=== PATIENT | male | born 2000 | race Caucasian/White ===

== ENCOUNTER 2022-04-23 20:31 | Emergency (ER) | payer OTHER, SELFPAY ==
[2022-04-23 21:12] VITALS: BP 145/78; PULSE 85; RESP 18; TEMP 36.4; O2SAT 99; BMI 22.3
--- NOTE | 2022-04-23 21:26 | CRLHL7_ITS ---
For Patients: As a result of the Century Cures Act, medical imaging exams and procedure reports are released immediately into your electronic medical record. You may view this report before your referring provider. If you have questions, please contact your health care provider. INDICATION: Facial swelling after root canal. COMPARISON: None available TECHNIQUE: CT examination of the facial bones is performed during the uneventful intravenous administration of 95 cc of Isovue 370. Using spiral technique. 1 mm thick axial, coronal and sagittal sections were obtained from the data. Please note that all CT scans at this facility use dose modulation, iterative reconstruction, and/or weight-based dosing when appropriate to reduce radiation dose to as low as reasonably achievable. FINDINGS: There is moderate facial swelling on the right extending from the mandibular region through the maxillary region and lower eyelid. The findings are that of moderate right cellulitis. On the right, there is a subperiosteal abscess along the anterior right maxilla measuring 1.5 by 0.6 centimeters, best seen on axial image 83 series 3. This is not associated with a periapical abscess. There is mild soft tissue swelling on the left in a similar distribution as on the right, with mild soft tissue stranding. The findings are that of mild left cellulitis. There is no sign of facial fracture on today`s study. The orbits, zygomatic arches, nasal bones, maxillae, and mandible are normal in appearance. There is moderate mucosal thickening in the inferior right maxillary sinus from moderate chronic sinusitis. There is a large mucous retention cyst in the inferior left maxillary sinus. There is patchy mucosal thickening in the anterior ethmoids, moderate on the left and mild on the right, chronic sinusitis. There is minimal mucosal thickening in the right sphenoid sinus from minimal chronic sinusitis. The rest of the paranasal sinuses are clear. The mastoids are clear. The intraorbital soft tissue structures are unremarkable. The airway structures are normal in appearance. IMPRESSION: Moderate right facial cellulitis resulting from a right anterior maxillary subperiosteal abscess, not associated with any periapical abscesses. Mild left facial cellulitis. Chronic sinusitis as described above. Please note that all CT scans at this facility use dose modulation, iterative reconstruction, and/or weight-based dosing when appropriate to reduce radiation dose to as low as reasonably achievable. Dictated by Steven Sage MD @ 04/24/2022 12:48:15 AM (Electronically Signed)
--- NOTE | 2022-04-23 21:32 | ED.GENADULT ---
HPI - General Adult General Time Seen by Provider: 21:33 Date Seen: 04/23/22 Chief complaint: Dental/Oral/Mouth Injury/Pain Stated complaint: tooth pain,facial swelling Time Seen by Provider: 04/23/22 21:17 Source: patient Mode of arrival: ambulatory Limitations: no limitations History of Present Illness HPI narrative: 21y/o male here with right facial swelling and pain after root canal yesterday. Patient had pain for 4, root canal of the right tooth 13 yesterday. Developed facial swelling today and increased seen by the dentist and started on clindamycin, he has taken 1 dose of this. Additional given Tylenol #3 and has been taking ibuprofen for pain. Denies fevers or chills but concern because the redness and swelling seem to be spreading a little bit more toward the eye. Related Data Home Medications Medication Instructions Recorded Confirmed No Known Home Medications 04/23/22 04/23/22 Allergies Allergy/AdvReac Type Severity Reaction Status Date / Time amoxicillin Allergy Intermediate Rash Verified 04/23/22 21:16 Review of Systems Status of ROS: Reports: 10 or more systems reviewed and unremarkable except as noted in History and below PFSH PFS Social History Smoking Status: Current every day smoker Do you use any of these nicotine containing products: E-Cigarettes and Vaping Products Second hand tobacco smoke exposure: Yes How often do you have a drink containing alcohol: never AUDIT-C Alcohol total score: 0 Non-prescribed substance use: marijuana (any form) Exam Narrative: Exam Narrative: General: Well-developed and well-nourished, no acute distress Head: Atraumatic and normocephalic Eyes: Pupils are equal reactive, extraocular motions intact, conjunctiva clear ENT: External nose and ears are normal, posterior pharynx without erythema or exudate. Swelling, erythema, and tenderness of the right maxillary and zygomatic area involving the inferior periorbital region. No proptosis or pain with external ocular movements. No palpable drainable fluid collection Neck: No midline cervical tenderness, full spontaneous range of motion the neck, trachea midline, no adenopathy Heart: Regular rate and rhythm no murmurs or thrills Lungs: Clear to auscultation bilaterally without wheezes or crackles Abdomen: Soft, nontender, nondistended with active bowel sounds Musculoskeletal: No tenderness, deformity, or edema Neurologic: Awake, alert, and oriented x3, no gross focal neurologic deficits, cranial nerves intact as tested Psych: Mood and affect are appropriate Skin: No rashes Const: Vital Signs, click to edit/add: Vital Signs - 24 hr 04/23/22 21:12 Temperature 97.6 F Pulse Rate [Right Pulse Oximeter] 85 Respiratory Rate 18 Blood Pressure [Ri ght Upper Arm] 145/78 H Pulse Oximetry 99 Course Reevaluation(s) Reevaluation #1: Patient rechecked. His pain is significantly better. We discussed findings of possible small subperiosteal abscess on the CT scan by my interpretation, radiology interpretation is pending. The interpreation agrees, patient should follow-up with his dentist/oral surgeon. Time: 00:16 Reevaluation #2: Radiology interpretation agrees with my initial interpretation. Patient is antibiotics and follow-up is oral surgeon. Time: 00:51 Vital Signs Vital signs: Initial Vital Signs Temperature 97.6 F 04/23/22 21:12 Temperature Source Temporal Artery Scan 04/23/22 21:12 Pulse Rate 85 04/23/22 21:12 Respiratory Rate 18 04/23/22 21:12 Blood Pressure 145/78 H 04/23/22 21:12 Blood Pressure Mean 100 04/23/22 21:12 Blood Pressure Position Sitting 04/23/22 21:12 Pulse Oximetry 99 04/23/22 21:12 Oxygen Delivery Method 04/23/22 21:12 Vital Signs Temperature 97.6 F 04/23/22 21:12 Pulse Rate 85 04/23/22 21:12 Respiratory Rate 18 04/23/22 21:12 Blood Pressure 145/78 H 04/23/22 21:12 Pulse Oximetry 99 04/23/22 21:12 Temperature 97.6 F 04/23/22 21:12 Pulse Rate 85 04/23/22 21:12 Respiratory Rate 18 04/23/22 21:12 Blood Pressure 145/78 H 04/23/22 21:12 Pulse Oximetry 99 04/23/22 21:12 Medical Decision Making MDM Narrative Medical decision making narrative: Patient seen and examined, prior records reviewed. Patient found to have right facial swelling after root canal. Consistent with facial cellulitis, concern for possible abscess although palpable fluid collection on exam. CT scan of the face is ordered, Rocephin IV, Decadron, Toradol ordered. Medical Records Medical records reviewed: Yes I reviewed the patient's medical records Lab Data Lab results reviewed: Yes I reviewed the patient's lab results Imaging Data CT face: Attestation: I have reviewed the pertinent imaging results. My impression: Swelling and likely subperiosteal abscess of the right maxills area. Radiology interpretation pending Radiologist's impression: On the right, there is a subperiosteal abscess along the anterior right maxilla measuring 1.5 by 0.6 centimeters, best seen on axial image 83 series 3. This is not associated with a periapical abscess. Discharge Plan Discharge Clinical Impression: Cellulitis and abscess of face Patient Disposition: Home, Self-Care Condition: Improved Instructions: Abscess Follow-up (ED) Additional Instructions: Follow-up with your dentist or oral surgeon tomorrow. On the right, there is a subperiosteal abscess along the anterior right maxilla measuring 1.5 by 0.6 centimeters.. This is not associated with a periapical abscess.Moderate right facial cellulitis resulting from a right anterior maxillary subperiosteal abscess, not associated with any periapical abscesses. Mild left facial cellulitis. Activity Level: No Restrictions Discharge Diet: Regular Prescriptions: No Action No Known Home Medications 0RF Follow Up/Referrals: Paulie Barrios MD [Primary Care Provider] - Stand Alone Forms: [employer] Info Instructions
[2022-04-23] MEDS: cefTRIAXone 1 GM in 0.9 % SODIUM CHLORIDE Mini-bag 100 ML IVPB (21:49)
[2022-04-23] MEDS: KETOROLAC 15 MG/ML inj IVP (21:50)
[2022-04-23] MEDS: dexAMETHasone 10 MG/ML inj IVP (21:50)
[2022-04-23] MEDS: 0.9 % SODIUM CHLORIDE 1000 ml 1,000 ML IV (21:50)
== END 2022-04-24 00:59 | disposition home or self-care (01) ==
PROVIDERS: Emergency Provider Family Medicine; PCP Family Medicine
DX: K04.7 Periapical abscess without sinus (principal); L03.211 Cellulitis of face
CPT/HCPCS: 70487; 96365; 96375; 99284; J0696; J1100; J1885; J7030; Q9967

== ENCOUNTER 2022-05-27 20:33 | Emergency (ER) | payer OTHER, SELFPAY ==
[2022-05-27 20:52] VITALS: BP 146/98; PULSE 76; RESP 16; TEMP 37.4; O2SAT 96; BMI 21.9
--- NOTE | 2022-05-27 22:01 | CRLHL7_ITS ---
For Patients: As a result of the Century Cures Act, medical imaging exams and procedure reports are released immediately into your electronic medical record. You may view this report before your referring provider. If you have questions, please contact your health care provider. INDICATION: Diarrhea 2-3 weeks. TECHNIQUE: CT abdomen and pelvis without contrast. Coronal and sagittal reformats were generated. COMPARISON: None. FINDINGS: Lower chest: Unremarkable. Liver: Unremarkable. Gallbladder and bile ducts: Unremarkable. No stones or inflammation. No biliary dilation. Spleen: Unremarkable. Pancreas: Unremarkable. Adrenal glands: Unremarkable. No nodules. Kidneys and Ureters: No stones or hydronephrosis. Lymph Nodes and Retroperitoneum: Scattered mildly prominent mesenteric nodes. Vasculature: Unremarkable. GI tract: The bowel, particularly the colon is poorly distended and the mucosal surface cannot be well evaluated without contrast. The small bowel loops are normal in caliber. The appendix is not well seen. Peritoneum/Abdominal Wall: Unremarkable. No mass or infiltration. No free air or free fluid. Pelvic Viscera: Unremarkable. Bladder: Unremarkable. Bones: Unremarkable for age. IMPRESSION: 1. The colon is poorly evaluated and shows questionable mucosal thickening, which cannot be determined without contrast. Colitis cannot be excluded on the basis of this noncontrast exam. 2. Diffuse prominent mesenteric nodes are nonspecific and are most suggestive of infectious or reactive etiologies. Please note that all CT scans at this facility use dose modulation, iterative reconstruction, and/or weight-based dosing when appropriate to reduce radiation dose to as low as reasonably achievable. Dictated by Kapil Trevino MD @ 05/27/2022 10:46:59 PM (Electronically Signed)
[2022-05-27 22:10] LABS: CDIFFEPI 027 PRESUMPTIVE NEGATIVE (Negative)
[2022-05-27 22:37] LABS: C.Difficile POSITIVE (Negative)
--- NOTE | 2022-05-27 22:39 | ED.NURSE ---
Received positive C. diff result from lab, will alert MD when available.
[2022-05-27] MEDS: VANCOMYCIN 125 MG CAPSULE PO (23:00)
--- NOTE | 2022-05-29 17:57 | ED.NAVMDI ---
HPI - Nausea/Vomiting/Diarrhea General Chief complaint: Diarrhea Stated complaint: Abdominal Pain/Diarrhea Time Seen by Provider: 05/27/22 21:48 History of Present Illness HPI Narrative: 21-year-old young man presenting to the emergency department accompanied by his mother with concern of diarrhea. Says been going on for 2-3 weeks. Further questioning reveals that this seems to have, on the heels of treatment with clindamycin in mid-April following dental extraction and abscess and subsequent facial cellulitis on my review of records. Stools have been loose at times but with watery component. He can be sweaty with the urge to defecate. Has not actually had a fever. Stools have been dark. No hematochezia described. Last 4 days has had increasing pain in the low abdomen. This is followed by the urge to defecate in the liquid stools. Pain is from the belly button down basically says. Hard to work due to frequency of pain and doubling over in pain. Historically no food intolerances. Does not describe historical heartburn. No particular ill exposures. 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 Was seen yesterday in clinic and initiated on famotidine. Had normal abdominal x-ray there. And white count was normal. Has not traveled recently. Related Data Previous Rx's Medication Instructions Recorded famotidine 20 mg tablet 20 mg PO BID #30 tabs 05/26/22 vancomycin 125 mg capsule 125 mg PO QID 12 days #48 caps 05/27/22 Allergies Allergy/AdvReac Type Severity Reaction Status Date / Time amoxicillin Allergy Intermediate Rash Verified 05/26/22 11:40 Review of Systems Status of ROS: Reports: 10 or more systems reviewed and unremarkable except as noted in History and below [facility] Medical History Abdominal pain Social History Smoking Status: Never smoker Do you use any of these nicotine containing products: E-Cigarettes and Vaping Products Second hand tobacco smoke exposure: Yes How often do you have a drink containing alcohol: never How often do you have six or more drinks on one occasion: Never AUDIT-C Alcohol total score: 0 Non-prescribed substance use: marijuana (any form) Exam Narrative: Exam Narrative: Well nourished. NAD. Bearded. Cranial nerves 2-12 intact. Calm. Breathing easily. Lungs are clear equal expansion/excursion. Cardiovascular with regular rate and rhythm. No murmur appreciated. Oropharynx is sticky Skin is warm and dry without apparent rash. Well perfused peripherally moving all extremities without difficulty Abdomen with normoactive bowel sounds is soft. Mildly tender in the low abdomen Const: Documenting provider has reviewed patient's vital signs: yes Course Course Hospital Course: He feels like he is tolerating fluids. Is not nauseated. Does not feel that he would need IV hydration here. Pain is not excessive at this time. Vital Signs Vital signs: Initial Vital Signs Temperature 99.3 F 05/27/22 20:52 Temperature Source Temporal Artery Scan 05/27/22 20:52 Pulse Rate 76 05/27/22 20:52 Pulse Rhythm 05/27/22 20:52 Respiratory Rate 16 05/27/22 20:52 Blood Pressure 146/98 H 05/27/22 20:52 Blood Pressure Mean 114 05/27/22 20:52 Blood Pressure Position Semi-Fowlers 05/27/22 20:52 Pulse Oximetry 96 05/27/22 20:52 Oxygen Delivery Method 05/27/22 20:52 Vital Signs Temperature 99.3 F 05/27/22 20:52 Pulse Rate 76 05/27/22 20:52 Respiratory Rate 16 05/27/22 20:52 Blood Pressure 146/98 H 05/27/22 20:52 Pulse Oximetry 96 05/27/22 20:52 Oxygen Delivery Method 05/27/22 20:52 Temperature 99.3 F 05/27/22 20:52 Pulse Rate 76 05/27/22 20:52 Respiratory Rate 16 05/27/22 20:52 Blood Pressure 146/98 H 05/27/22 20:52 Pulse Oximetry 96 05/27/22 20:52 Oxygen Delivery Method 05/27/22 20:52 MDM - Nausea/Vomiting/Diarrhea MDM Narrative Medical decision making narrative: Given degree of discomfort and duration I think it would be reasonable to do CT abdomen pelvis. I would expect to find evidence of colitis/enteritis With this history of clindamycin and duration of diarrhea certainly have strong suspicion for Clostridium difficile overgrowth. We have collected samples of stool. Indeed positive for Clostridium difficile. Medical Records Attestation: I reviewed the patient's medical records. Lab Data Attestation: I reviewed the patient's lab results. Labs: Lab Results 05/27/22 Range/Units 21:06 Stl C.difficile Tox PCR POSITIVE A* (Negative) St C. diff Tox Epid 027 PRESUMPTIVE NEGATIVE (Negative) IMPRESSION: 1. The colon is poorly evaluated and shows questionable mucosal thickening, which cannot be determined without contrast. Colitis cannot be excluded on the basis of this noncontrast exam. 2. Diffuse prominent mesenteric nodes are nonspecific and are most suggestive of infectious or reactive etiologies. Please note that all CT scans at this facility use dose modulation, iterative reconstruction, and/or weight-based dosing when appropriate to reduce radiation dose to as low as reasonably achievable. Dictated by Kapil Trevino MD @ 05/27/2022 10:46:59 PM Discharge Plan Discharge Clinical Impression: C. difficile colitis, Abdominal pain Patient Disposition: Home w/ Parent or Adult Condition: Stable Instructions: C. Diff (Clostridioides Difficile) Infection (ED) Additional Instructions: Focus on hydration. Reconstituted electrolyte drinks (from powder) might be a good idea. Return for marked increase in abdominal pain, repeated vomiting, associated fever, intractable diarrhea such that can't keep up with fluids. Diarrhea should resolve prior to end of antibiotic course. Consider supplementing with oral probiotics during time of antibiotics and few weeks beyond. Initiating vancomycin Prescriptions: New vancomycin 125 mg capsule 125 mg PO QID 12 Days Qty: 48 0RF No Action famotidine 20 mg tablet 20 mg PO BID Qty: 30 0RF Follow Up/Referrals: Provider,Not a Local [Primary Care Provider] - Stand Alone Forms: [employer] Info Instructions
[2022-06-04 03:05] LABS: Ova and Parasite, Fecal Negative (Negative)
== END 2022-05-28 00:15 | disposition home or self-care (01) ==
PROVIDERS: Emergency Provider Family Medicine
DX: A04.72 Enterocolitis due to Clostridium difficile, not specified as recurrent (principal)
CPT/HCPCS: 74176; 87045; 87046; 87177; 87209; 87427; 87493; 96361; 96374; 99284